=== PATIENT | male | born 1985 | race American Indian/Alaskan Native ===

== ENCOUNTER 2018-04-25 21:59 | Emergency (ER) | payer SELFPAY ==
[2018-04-25 22:18] VITALS: BP 142/80
[2018-04-25] MEDS ORDERED: ZOFRAN IV ONE (23:05)
[2018-04-25] MEDS ORDERED: NACL 0.9% 1000 ML 1,000 ML IV ONE (23:05)
--- NOTE | 2018-04-25 23:20 | Emergency Department Report ---
ED Abdominal Pain HPI - General Chief Complaint: Upper Respiratory Infection Stated Complaint: VOMITING, DIARRHEA, CHEST PAIN Time Seen by Provider: 04/25/18 22:59 Source: patient Mode of arrival: Ambulatory Limitations: No Limitations - History of Present Illness Initial Comments: Patient is a 32-year-old -Romanian male presents with abdominal pain fever nausea vomiting and/or diarrhea pain is 7/10 left upper quadrant radiating to left lower quadrant there is right upper quadrant tenderness patient is smoker and EtOH drinker symptoms relieved by nothing symptoms exacerbated by by mouth intake last by mouth intake was this morning and nausea and vomiting 30 minutes ago MD Complaint: abdominal pain Onset/Timin -: days(s) Location: LUQ, RUQ, LLQ Radiation: LLQ Migration to: RUQ Severity: moderate Severity scale (0 -10): 6 Quality: aching, sharp Consistency: constant Improves With: nothing Worsens With: eating Associated Symptoms: nausea, vomiting, diarrhea, fever, chills. denies: constipation, dysuria, hematemesis, hematochezia, melena, hematuria, anorexia, syncope - Related Data Previous Rx's Medication Instructions Recorded Last Taken Type Dicyclomine [Bentyl] 10 mg PO QID PRN #30 capsule 04/26/18 Unknown Rx Famotidine [Pepcid] 20 mg PO BID #60 tablet 04/26/18 Unknown Rx Ondansetron [Zofran Odt] 4 mg PO Q8HR PRN #12 tab.rapdis 04/26/18 Unknown Rx Allergies Allergy/AdvReac Type Severity Reaction Status Date / Time hydrocodone Allergy Unknown Verified 04/25/18 22:18 phenytoin [From Dilantin] Allergy Unknown Verified 04/25/18 22:18 tramadol Allergy Unknown Verified 04/25/18 22:18 ED Review of Systems ROS: Stated complaint: VOMITING, DIARRHEA, CHEST PAIN Other details as noted in HPI Constitutional: chills, fever Eyes: denies: eye pain, eye discharge, vision change ENT: denies: ear pain, throat pain Respiratory: denies: cough, shortness of breath, wheezing Cardiovascular: denies: chest pain, palpitations Endocrine: no symptoms reported Gastrointestinal: abdominal pain, nausea, vomiting, diarrhea, other (epigastric pain ). denies: constipation, hematemesis, melena, hematochezia Genitourinary: denies: urgency, dysuria Musculoskeletal: denies: back pain, joint swelling, arthralgia Skin: denies: rash, lesions Neurological: denies: headache, weakness, paresthesias Psychiatric: denies: anxiety, depression Hematological/Lymphatic: denies: easy bleeding, easy bruising ED Past Medical Hx - Past Medical History Hx Seizures: Yes Hx Asthma: Yes - Surgical History Past Surgical History?: No - Social History Smoking Status: Never Smoker Substance Use Type: Alcohol - Medications Home Medications: Home Medications Medication Instructions Recorded Confirmed Last Taken Type Dicyclomine [Bentyl] 10 mg PO QID PRN #30 capsule 04/26/18 Unknown Rx Famotidine [Pepcid] 20 mg PO BID #60 tablet 04/26/18 Unknown Rx Ondansetron [Zofran Odt] 4 mg PO Q8HR PRN #12 tab.rapdis 04/26/18 Unknown Rx ED Physical Exam - General Limitations: No Limitations ED Course Vital Signs 04/25/18 22:15 Temperature 98.2 F Pulse Rate 86 Respiratory 22 Rate Blood Pressure 142/80 O2 Sat by Pulse 97 Oximetry ED Medical Decision Making - Lab Data Result diagrams: 04/25/18 23:30 04/25/18 23:30 - Radiology Data Radiology results: report reviewed, image reviewed FINAL REPORT EXAM: CT ABDOMEN PELVIS W CON HISTORY: abd pain COMPARISON: None available. TECHNIQUE: Contiguous axial images were obtained. Additional sagittal and coronal reformatted images were obtained. Administration of IV contrast given per institution protocol. Images submitted for interpretation. 100 cc Omnipaque 350. FINDINGS: Mild linear atelectasis at the lung bases. Gallbladder is contracted. No adjacent fat stranding. No calcified gallstones by CT. No biliary dilatation. Liver and pancreas unremarkable. Spleen is mildly enlarged measuring 13 centimeters. No adrenal mass. Superior right renal cyst measuring 1.3 centimeters. No solid renal lesion. No hydronephrosis. Aorta and IVC are normal in caliber. Urinary bladder and prostate gland are grossly unremarkable. No free fluid or lymphadenopathy in the pelvic cavity. The appendix is normal in caliber. Large and small bowel loops normal in caliber. No focal inflammatory changes the bowel. Lumbar vertebral body heights are preserved. Mild degenerative changes of the lumbar spine. Bony pelvis is grossly intact. IMPRESSION: No focal inflammatory changes of the abdomen and pelvis. Transcribed By: LMA Dictated By: RAYSA GARCIA MD Electronically Authenticated By: RAYSA GARCIA MD Signed Date/Time: 04/26/18 0046 - Medical Decision Making CT Abd and Pelvis : no acute inflammatory process, right renal cyst, slightly enlarged pancrease. nausea and vomitng resolve, pt is tolerating po intake without n/v, plan: pepcid, bentyl, zofran follow up with GI in 2-3 days , pt verbalized agreement and understanding of same. pt will be dc'd to home in stable condition at this time. Critical care attestation.: If time is entered above; I have spent that time in minutes in the direct care of this critically ill patient, excluding procedure time. ED Disposition Clinical Impression: Abdominal pain Qualifiers: Abdominal location: generalized Qualified Code(s): R10.84 - Generalized abdominal pain Nausea and vomiting Qualifiers: Vomiting type: unspecified Vomiting Intractability: non-intractable Qualified Code(s): R11.2 - Nausea with vomiting, unspecified Disposition: DC-01 TO HOME OR SELFCARE Is pt being admited?: No Does the pt Need Aspirin: No Condition: Stable Instructions: Acute Nausea and Vomiting (ED), Abdominal Pain (ED), Abuse of Alcohol (ED) Prescriptions: Dicyclomine [Bentyl] 10 mg PO QID PRN #30 capsule PRN Reason: abdominal spasm Famotidine [Pepcid] 20 mg PO BID #60 tablet Ondansetron [Zofran Odt] 4 mg PO Q8HR PRN #12 tab.rapdis PRN Reason: Nausea And Vomiting Referrals: AALIYAH SWAIN MD [Staff Physician] - 3-5 Days Forms: Work/School Release Form(ED) Time of Disposition: 01:35
[2018-04-25 23:39] LABS: Basophils % (Auto) 0.4 % (0.0-1.8); Eosinophils # (Auto) 0.3 K/mm3 (0.0-0.4); Eosinophils % (Auto) 3.3 % (0.0-4.3); Hematocrit 40.5 % (35.5-45.6); Hemoglobin 13.5 gm/dl (11.8-15.2); Mean Corpuscular HGB Conc 33 % (32-34); Mean Corpuscular Volume 86 fl (84-94); Monocytes # (Auto) 0.8 K/mm3 (0.0-0.8); Monocytes % (Auto) 9.8 % (0.0-7.3); Platelet Count 266 K/mm3 (140-440); Red Cell Distribution Width 13.7 % (13.2-15.2)
[2018-04-26 00:03] LABS: Alanine Aminotransferase 62 units/L (7-56); Albumin 3.9 g/dL (3.9-5); BUN/Creatinine Ratio 14; Blood Urea Nitrogen 13 mg/dL (9-20); Hemolysis Index 56
[2018-04-26 00:18] LABS: INR 0.87 (0.87-1.13); Partial Thromboplastin Time 22.7 Sec. (24.2-36.6)
--- NOTE | 2018-04-26 00:46 | Cat Scan Report ---
FINAL REPORT EXAM: CT ABDOMEN PELVIS W CON HISTORY: abd pain COMPARISON: None available. TECHNIQUE: Contiguous axial images were obtained. Additional sagittal and coronal reformatted images were obtained. Administration of IV contrast given per institution protocol. Images submitted for in terpretation. 100 cc Omnipaque 350. FINDINGS: Mild linear atelectasis at the lung bases. Gallbladder is contracted. No adjacent fat stranding. No c alcified gallstones by CT. No biliary dilatation. Liver and pancreas unremarkable. Spleen is mildly e nlarged measuring 13 centimeters. No adrenal mass. Superior right renal cyst measuring 1.3 centimeter s. No solid renal lesion. No hydronephrosis. Aorta and IVC are normal in caliber. Urinary bladder and prostate gland are grossly unremarkable. No free fluid or lymphadenopathy in the pelvic cavity. The appendix is normal in caliber. Large and small bowel loops normal in caliber. No f ocal inflammatory changes the bowel. Lumbar vertebral body heights are preserved. Mild degenerative changes of the lumbar spine. Bony pelv is is grossly intact. IMPRESSION: No focal inflammatory changes of the abdomen and pelvis.
[2018-04-26 01:37] LABS: Bilirubin,Urine NEG (Negative); Blood,Urine NEG (Negative); Color,Urine Yellow (Yellow); Mucus,Urine 3+ /HPF; Protein,Urine <15 mg/dL mg/dL (Negative)
== END 2018-04-26 01:48 | disposition home or self-care (01) ==
LOC: ED 21:59
DX: R11.2 Nausea with vomiting, unspecified (principal); R10.84 Generalized abdominal pain; J45.909 Unspecified asthma, uncomplicated
CPT/HCPCS: 36415; 74177; 80053; 81001; 83690; 85025; 85610; 85730; 93005; 93010; 96361; 96374; 99284; J2405; J7030; Q9967

== ENCOUNTER 2018-09-18 23:38 | Emergency (ER) | payer OTHER ==
[2018-09-19] MEDS ORDERED: TORADOL IM ONE (02:30)
[2018-09-19] MEDS ORDERED: VALIUM PO ONE (02:30)
[2018-09-19 03:03] LABS: Basophils % (Auto) 0.3 % (0.0-1.8); Eosinophils # (Auto) 0.1 K/mm3 (0.0-0.4); Eosinophils % (Auto) 1.4 % (0.0-4.3); Hemoglobin 13.4 gm/dl (11.8-15.2); Lymphocytes # (Auto) 1.8 K/mm3 (1.2-5.4); Lymphocytes % (Auto) 23.2 % (13.4-35.0); Mean Corpuscular HGB Conc 33 % (32-34); Mean Corpuscular Volume 86 fl (84-94); Monocytes # (Auto) 0.7 K/mm3 (0.0-0.8); Monocytes % (Auto) 9.5 % (0.0-7.3); Platelet Count 268 K/mm3 (140-440); Red Blood Count 4.64 M/mm3 (3.65-5.03); Red Cell Distribution Width 13.8 % (13.2-15.2)
--- NOTE | 2018-09-19 03:06 | XRay Report ---
PROCEDURE: XR SPINE LUMBOSACRAL 2-3V TECHNIQUE: Lumbar spine radiographs, two views. HISTORY: low back pain COMPARISONS: None . FINDINGS: Alignment: Normal . Vertebral body heights/Disk spaces: Normal . Fracture(s): None . Facets: Normal . Bone mineralization: Normal . IMPRESSION: No acute fracture or subluxation. This document is electronically signed by Sagrario Lynn MD., September 19 2018 03:04:18 AM ET
[2018-09-19 03:15] LABS: BUN/Creatinine Ratio 14; Blood Urea Nitrogen 13 mg/dL (9-20); Calcium 9.1 mg/dL (8.4-10.2); Hemolysis Index 19
--- NOTE | 2018-09-19 03:22 | Emergency Department Report ---
HPI - General Chief Complaint: Back Pain/Injury Time Seen by Provider: 09/19/18 02:04 - HPI HPI: 32-year-old male presents to the emergency department with a complaint of some low back pain that has been going on for the past 2 months but worsened over the last day or 2. He denies any initial injury or trauma. He denies any problems with bowel or bladder, numbness or paresthesias, or any other acute neurological deficits. He has a past medical history of asthma, seizures and bronchitis. He took some ibuprofen and one of his 's Flexeril for his symptoms without any relief. No recent travel or sick contacts at home. ED Past Medical Hx - Past Medical History Previous Medical History?: Yes Hx Seizures: Yes Hx Asthma: Yes Additional medical history: bronchitis - Surgical History Past Surgical History?: No - Social History Smoking Status: Never Smoker Substance Use Type: None - Medications Home Medications: Home Medications Medication Instructions Recorded Confirmed Last Taken Type Dicyclomine [Bentyl] 10 mg PO QID PRN #30 capsule 04/26/18 Unknown Rx Famotidine [Pepcid] 20 mg PO BID #60 tablet 04/26/18 Unknown Rx Ondansetron [Zofran Odt] 4 mg PO Q8HR PRN #12 tab.rapdis 04/26/18 Unknown Rx Prednisone [predniSONE 10 mg 10 mg PO .TAPER #1 tab.ds.pk 09/19/18 Unknown Rx (6-Day Pack, 21 Tabs)] diazePAM TAB [Valium] 5 mg PO TID PRN #12 tablet 09/19/18 Unknown Rx ED Review of Systems ROS: Stated complaint: LOWER BACK PAIN HEADACHE Other details as noted in HPI Comment: All other systems reviewed and negative Constitutional: denies: chills, fever Eyes: denies: eye pain, vision change ENT: denies: ear pain, throat pain Respiratory: denies: cough, shortness of breath Cardiovascular: denies: chest pain, palpitations Gastrointestinal: denies: abdominal pain, vomiting Genitourinary: denies: dysuria, discharge Musculoskeletal: back pain, myalgia. denies: joint swelling Skin: denies: rash, lesions Neurological: denies: weakness, numbness, paresthesias Physical Exam - Physical Exam Vital Signs: Vital Signs 09/18/18 09/19/18 09/19/18 23:47 01:06 01:15 Temperature 98.0 F Pulse Rate 105 H Respiratory 16 Rate Blood Pressure 140/86 123/72 O2 Sat by Pulse 97 96 95 Oximetry Physical Exam: GENERAL: The patient is well-developed well-nourished. HENT: Normocephalic. Atraumatic. Patient has moist mucous membranes. EYES: Extraocular motions are intact. NECK: Supple. Trachea is midline. CHEST/LUNGS: Clear to auscultation. There is no respiratory distress noted. HEART/CARDIOVASCULAR: Regular. There is no tachycardia. There is no murmur. ABDOMEN: Abdomen is soft, nontender. There is no abdominal distention. SKIN: Skin is warm and dry. NEURO: The patient is awake, alert, and oriented. The patient is cooperative. The patient has no focal neurologic deficits. The patient has normal speech. MUSCULOSKELETAL: There is no tenderness or deformity. There is no limitation range of motion. There is no evidence of acute injury. Muscle strength 5 out of 5 upper and lower extremities bilaterally including EHL. BACK: There is both midline and bilateral paraspinal tenderness to palpation but no step-off or deformity. ED Course Vital Signs 09/18/18 09/19/18 09/19/18 23:47 01:06 01:15 Temperature 98.0 F Pulse Rate 105 H Respiratory 16 Rate Blood Pressure 140/86 123/72 O2 Sat by Pulse 97 96 95 Oximetry ED Medical Decision Making - Lab Data Result diagrams: 09/19/18 02:45 09/19/18 02:45 - Radiology Data Radiology results: image reviewed interpreted by me: X-ray of the lumbar spine does not show any fracture, subluxation, or any acute process. - Medical Decision Making This patient presents to the emergency department with a complaint of some acute on chronic atraumatic low back pain. He has full muscle strength to upper and lower extremities. He denies any numbness or paresthesias, problems with bowel or bladder, or any neurological deficits. An x-ray was done that does not show any fracture, subluxation, or any acute process. Some basic blood work was obt ained but resulted as normal/unremarkable. Patient was given a shot of Toradol and a Valium pill for anti-inflammatory and muscle relaxers respectively. Patient says that he has some improvement but it did not resolve his symptoms. Patient vital signs are stable, including being afebrile, and have been throughout his ED course. He appears very low suspicion for any of the emergent back conditions such as cauda equina, epidural abscess or cord compression syndrome. The patient was given a referral for a large orthopedic group, as well as a neurosurgeon. He was given a prescription for a prednisone pack and a muscle relaxer. The patient was seen ambulatory in the emergency department an d both appears and feels stable. He will return to the emergency Department with any worsening of his symptoms or any acute distress. - Differential Diagnosis lumbar strain, muscle spasm, sacroiliitis, disc herniation, sciatica Critical Care Time: No Critical care attestation.: If time is entered above; I have spent that time in minutes in the direct care of this critically ill patient, excluding procedure time. ED Disposition Clinical Impression: Low back pain Qualifiers: Chronicity: chronic Back pain laterality: bilateral Sciatica presence: unspecified whether sciatica present Qualified Code(s): M54.5 - Low back pain; G89.29 - Other chronic pain Disposition: TO HOME OR SELFCARE Is pt being admited?: No Condition: Stable Instructions: Sacroiliitis (ED), Back Pain (ED) Additional Instructions: Please follow up with a primary care physician. I am giving you a referral for a local neurosurgeon, Dr. Dumont, and a referral for a large orthopedic group, [facility], to follow up with regarding your low back pain. Return to the emergency Department with any worsening of your symptoms or any acute distress. You have been prescribed a medication that is sedating and therefore should not be taken prior to driving, working, and responsible for children and in no way should be mixed with alcohol of any quantity. Prescriptions: Prednisone [predniSONE 10 mg (6-Day Pack, 21 Tabs)] 10 mg PO .TAPER #1 tab.ds.pk diazePAM TAB [Valium] 5 mg PO TID PRN #12 tablet PRN Reason: Muscle Spasm Referrals: DIPAK DUMONT MD [Staff Physician] - 2-3 Days [facility] [Provider Group] - 2-3 Days Time of Disposition: 03:59
[2018-09-19 04:12] VITALS: BP 112/67
== END 2018-09-19 04:12 | disposition home or self-care (01) ==
LOC: ED 23:38
DX: M54.5 Low back pain (principal); G89.29 Other chronic pain; J45.909 Unspecified asthma, uncomplicated; Z88.6 Allergy status to analgesic agent
CPT/HCPCS: 36415; 72100; 80048; 85025; 99283; J1885